=== PATIENT | male | born 1965 | race Caucasian/White ===

== ENCOUNTER 2016-11-24 19:23 | Emergency (ER) | payer OTHER ==
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
[2016-11-24 21:56] VITALS: BP 126/72; TEMP 98.7; BMI 25.0
== END 2016-11-24 19:45 | disposition home or self-care (01) ==
LOC: ED 19:23
DX: S60.512A Abrasion of left hand, initial encounter (principal); S60.511A Abrasion of right hand, initial encounter
CPT/HCPCS: 99283

== ENCOUNTER 2016-12-10 12:16 | Emergency (ER) ==
[2016-12-10 12:18] VITALS: BMI 25.0
[2016-12-10 12:29] VITALS: BP 124/86; TEMP 97.5
--- NOTE | 2016-12-10 17:22 | CT ---
EXAM: CT cervical spine. HISTORY: Neck pain. TECHNIQUE: CT cervical spine without contrast. Detailed axial sections. Coronal and sagittal re-f ormations. COMPARISON: 02/03/2014 FINDINGS: Bones appear demineralized. Redemonstration of hardware of the cervical spine which currently exten ds from C4-C7 posteriorly. There is mild stable, chronic deformity of the posterior aspect of C6 ve rtebral body possibly from previous injury. No definite spondylolisthesis. Lateral masses of C1 and C2 are normally aligned and the odontoid process is intact. No acute fracture is obvious. There i s diffuse degenerative disc and facet disease. There is at least mild central canal stenosis at C6/ C7. The central canal is not optimally seen secondary to artifact from metallic hardware. There is at least mild neural foraminal narrowing on the left, at the level of stabilization. IMPRESSION: 1. No acute fracture or subluxation. 2. Stabilization hardware extending from C4-C7. 3. Degenerative disc and facet disease which has become slightly more apparent since the prior exam .]
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
--- NOTE | 2016-12-10 17:28 | CT ---
EXAM: CT thoracic spine. HISTORY: Thoracic spine pain. TECHNIQUE: CT thoracic spine without contrast. Detailed axial sections. Coronal and sagittal re-f ormations. FINDINGS: Comparison is made to 10/02/2013. The bones appear demineralized. There is anterior and lateral bridging osteophytic spurring mainly of the [id number] spine. Moderate degenerative endplate changes are seen at least in the mid thor acic level. There is mild loss of height at what is thought to represent T7. Minimal loss of heigh t and T6, T8 and T9 as well as T10. No acute fracture is identified. There is subtle scoliosis con vex to the right. Slight exaggeration of thoracic kyphosis. No obvious central canal stenosis or n eural foraminal narrowing. No paraspinal fluid collection is identified. See also same day CT thor ax report. IMPRESSION: Moderate degenerative changes of the spine with generalized demineralization. Degenerati ve changes are slightly more noticeable since prior exam. No acute abnormality identified.
--- NOTE | 2016-12-10 17:30 | CT ---
EXAM: CT of the lumbar spine without contrast History: Back trauma. Technique: Multiplanar CT images through the lumbar spine were obtained without the administration of IV contrast Findings: Nodular cirrhotic liver with low density liver lesion. No acute fracture or subluxation of the lumbar spine. Mild to moderate multilevel degenerative disc space narrowing with endplate sclerosis and prominent anterior osteophytes. Mild to moderate multil evel bony central canal stenosis secondary to disc bulges and posterior disc osteophyte complex at L 4-L5. Multilevel bilateral bony neural foraminal narrowing secondary to ligamentous and facet hyper trophy which is most significant and severe bilaterally at L5-S1. Impression: No acute osseous abnormality of the lumbar spine. Degenerative changes.
--- NOTE | 2016-12-10 17:34 | CT ---
EXAM: CT FACIAL BONES HISTORY: Facial pain. TECHNIQUE: CT facial bones without contrast. 3-mm axial sections. Coronal and sagital reformation s. FINDINGS: Comparison is made to 01/23/2014. Stable mild deformity of both mid nasal spines. Stable probable tiny medial blowout fracture of the left inferior orbital wall. Stable hardware and poorly united fracture of the left anterior mandib ular body. Poor dental health. Scattered areas of mucosal thickening in the paranasal sinuses with probable postop changes of the sinuses, correlate with history. No visible peripheral soft tissue hematoma. IMPRESSION: No acute fracture or injury identified.
--- NOTE | 2016-12-10 18:05 | ED.PDOC ---
General ED Provider: Dr. LAMIN MAHONEY Chief Complaint: Multiple Trauma Stated Complaint: back right chest Time Seen by Physician: 12:19 Mode of Arrival: Walk-In Information Source: Patient Exam Limitations: No limitations Nursing and Triage Documentation Reviewed and Agree: Yes Trauma/Injury Complaint Exam - Trauma Complaint/Exam Location of Pain or Injury: Reports: Chest, Back Mechanism of Injury: Reports: Fall Onset/Duration: 20 days ago Symptoms Are: Still present Initial Severity: Moderate Current Severity: Mild Character: Reports: Aching Aggravating: Reports: Movement Alleviating: Reports: Rest Associated Signs and Symptoms: Denies: LOC, Confusion, Memory loss, Lethargy, Vomiting, Bleeding, Bruising, Swelling, Extremity disuse, Painful respiration, Hoarseness, Dysphagia, Hemoptysis, Significant blood loss Nexus Low Risk Criteria: No evidence of intoxicat., No Altered LOC, No focal neuro deficit, No distracting injuries Glascow Coma Scale (see protocol): 15 Differential Diagnoses: Fracture, Sprain, Strain Review of Systems - Review Of Systems Constitutional: Reports: No symptoms Eyes: Reports: No symptoms Ears, Nose, Mouth, Throat: Reports: No symptoms Respiratory: Reports: No symptoms Cardiac: Reports: No symptoms GI: Reports: No symptoms : Reports: No symptoms Musculoskeletal: Reports: Back pain Skin: Reports: No symptoms Neurological: Reports: No symptoms Endocrine: Reports: No symptoms Hematologic/Lymphatic: Reports: No symptoms All Other Systems: Reviewed and Negative Past Medical History - Past Medical History Endocrine: Reports: Unknown Cardiovascular: Reports: Unknown Respiratory: Reports: Unknown Hematological: Reports: Unknown Gastrointestinal: Reports: Unknown Genitourinary: Reports: Unknown Neuro/Psych: Reports: Unknown Musculoskeletal: Reports: Unknown Cancer: Reports: Unknown - Surgical History General Surgical History: Reports: Unknown - Family History Family History: Reports: Unknown - Social History Smoking Status: Never smoker Hx Substance Use: No Alcohol Screening: Heavy Physical Exam - Physical Exam Appearance: Well-appearing, No pain distress, Well-nourished Eyes: EVETTE, EOMI, Conjunctiva clear ENT: Ears normal, Nose normal, Oropharynx normal Respiratory: Airway patent, Breath sounds clear, Breath sounds equal, Respirations nonlabored Cardiovascular: RRR, Pulses normal, No rub, No murmur GI/: Soft, Nontender, No masses, Bowel sounds normal, No Organomegaly Musculoskeletal: No edema (right sided chest wall pain) Skin: Warm, Dry, Normal color Neurological: Sensation intact, Motor intact, Reflexes intact, Cranial nerves intact, Alert, Oriented Psychiatric: Affect appropriate, Mood appropriate Critical Care Note - Critical Care Note Total Time (mins): 0 Course - Course Orders, Labs, Meds: Orders Category Date Time Status CT CERVICAL SPINE W/O CONTRAST Stat RADS 12/10/16 16:[address] CHEST W/O CONTRAST Stat RADS 12/10/16 16:[address] LUMBAR SPINE W/O CONTRAST Stat RADS 12/10/16 16:[address] MAXILLOFACIAL W/O CONTRAST Stat RADS 12/10/16 16:[address] THORACIC SPINE W/O CONTRAST Stat RADS 12/10/16 16:19 Completed Vital Signs: Temp Pulse Resp BP Pulse Ox 12/10/16 12:19 97.5 F L 103 H 20 124/86 98 Departure - Departure Time of Disposition: 18:05 Disposition: HOME SELF-CARE Discharge Problem: Fracture of rib Qualifiers: Encounter type: initial encounter Rib fracture type: multiple ribs Laterality: right Instructions: Rib Fracture (ED) Condition: Good Pt referred to PMD for follow-up: No Additional Instructions: Please call your Family Physician as soon as possible to schedule a follow-up appointment. Allergies/Adverse Reactions: Allergies No Known Allergies Allergy (Verified 12/10/16 15:28) Home Medications: Ambulatory Orders Baclofen 10 mg PO TID 12/10/16 Baclofen 30 mg PO TID PRN 12/10/16 Cetirizine HCl [Zyrtec] 10 mg PO DAILY 12/10/16 Hydroxyzine HCl 50 mg PO TID 12/10/16 Lisinopril/Hydrochlorothiazide [Lisinopril-Hctz 10-12.5 mg Tab] 2 tab PO DAILY 12/10/16 Mirtazapine 30 mg PO BEDTIME 12/10/16 Naltrexone HCl 50 mg PO DAILY 12/10/16 Potassium Chloride [K-Tab ER] 10 meq PO DAILY 12/10/16 Sertraline HCl 200 mg PO DAILY 12/10/16 Tramadol HCl [Ultram] 50 mg PO Q6H 12/10/16
== END 2016-12-10 18:15 | disposition home or self-care (01) ==
LOC: ED 12:16
DX: S22.41XA Multiple fractures of ribs, right side, initial encounter for closed fracture (principal); W19.XXXA Unspecified fall, initial encounter
CPT/HCPCS: 99283

== ENCOUNTER 2017-12-06 10:51 | Emergency (ER) ==
[2017-12-06 11:13] VITALS: BP 119/76; TEMP 97.5; BMI 23.5
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
== END 2017-12-06 14:21 | disposition short-term general hospital (02) ==
LOC: ED 10:51
DX: T33.821A Superficial frostbite of right foot, initial encounter (principal); M79.672 Pain in left foot; M79.671 Pain in right foot; X31.XXXA Exposure to excessive natural cold, initial encounter
CPT/HCPCS: 36415; 80053; 85025; 87040; 99285

== ENCOUNTER 2017-12-06 14:20 | Outpatient (CLI) ==
[2017-12-06 11:13] VITALS: BMI 23.5
== END 2017-12-06 14:21 | disposition short-term general hospital (02) ==
LOC: AMBL 14:20
PROVIDERS: ATTEND Internal Medicine
DX: T34.832A Frostbite with tissue necrosis of left toe(s), initial encounter (principal); T34.831A Frostbite with tissue necrosis of right toe(s), initial encounter; M79.672 Pain in left foot; M79.671 Pain in right foot; X31.XXXA Exposure to excessive natural cold, initial encounter; R00.0 Tachycardia, unspecified

== ENCOUNTER 2017-12-20 06:55 | Outpatient (CLI) | END 2017-12-20 06:56 | disposition short-term general hospital (02) | LOC: AMBL 06:55 | PROVIDERS: ATTEND Family Medicine | DX: T33.832A Superficial frostbite of left toe(s), initial encounter (principal); T33.831A Superficial frostbite of right toe(s), initial encounter; F10.129 Alcohol abuse with intoxication, unspecified ==

== ENCOUNTER 2018-01-14 20:45 | Outpatient (CLI) | END 2018-01-14 20:46 | disposition short-term general hospital (02) | LOC: AMBL 20:45 | PROVIDERS: ATTEND Internal Medicine Geriatric Medicine | DX: M79.605 Pain in left leg (principal); M79.604 Pain in right leg; I96 Gangrene, not elsewhere classified; W19.XXXA Unspecified fall, initial encounter ==

== ENCOUNTER 2018-03-19 20:22 | Emergency (ER) | payer OTHER ==
[2018-03-19 20:29] VITALS: BMI 24.1
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
[2018-03-20 00:26] VITALS: TEMP 97.4
[2018-03-20 06:30] VITALS: BP 124/71
[2018-03-20] MEDS ORDERED: ATIVAN PO STA (14:09)
== END 2018-03-20 15:55 | disposition short-term general hospital (02) ==
LOC: ED 20:22
DX: R45.851 Suicidal ideations (principal); R45.850 Homicidal ideations; F10.920 Alcohol use, unspecified with intoxication, uncomplicated; T33.821D Superficial frostbite of right foot, subsequent encounter
CPT/HCPCS: 36415; 80053; 80306; 80307; 81001; 84443; 85025; 93005; 93010; 99285

== ENCOUNTER 2018-03-20 15:33 | Outpatient (CLI) ==
[2018-03-19 20:29] VITALS: BMI 24.1
== END 2018-03-20 18:05 | disposition short-term general hospital (02) ==
LOC: AMBL 15:33
PROVIDERS: ATTEND Emergency Medicine
DX: R45.851 Suicidal ideations (principal)

== ENCOUNTER 2018-03-28 18:46 | Emergency (ER) | payer OTHER ==
[2018-03-28 18:51] VITALS: BP 191/104; TEMP 98; BMI 23.4
[2018-03-28] MEDS ORDERED: TENIVAC IM ONE (18:52)
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
== END 2018-03-28 19:41 ==
LOC: ED 18:46
DX: S09.90XA Unspecified injury of head, initial encounter (principal); S00.212A Abrasion of left eyelid and periocular area, initial encounter; W22.8XXA Striking against or struck by other objects, initial encounter
CPT/HCPCS: 90471; 90714; 99283

== ENCOUNTER 2018-08-17 19:40 | Outpatient (CLI) | END 2018-08-17 19:58 | disposition short-term general hospital (02) | LOC: AMBL 19:40 | PROVIDERS: ATTEND Internal Medicine Geriatric Medicine | DX: R07.9 Chest pain, unspecified (principal) ==

== ENCOUNTER 2018-08-22 20:19 | Outpatient (CLI) | END 2018-08-22 20:20 | disposition home or self-care (01) | LOC: AMBL 20:19 | PROVIDERS: ATTEND Family Medicine | DX: R07.9 Chest pain, unspecified (principal) ==

== ENCOUNTER 2018-10-29 11:20 | Emergency (ER) ==
[2018-10-29 11:23] VITALS: BP 167/103; TEMP 96.9; BMI 23.5
[2018-10-29] MEDS ORDERED: SODIUM CHLORIDE 1,000 ML IV STA (11:38)
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
== END 2018-10-29 15:29 | disposition home or self-care (01) ==
LOC: ED 11:20
DX: S32.019A Unspecified fracture of first lumbar vertebra, initial encounter for closed fracture (principal); M54.2 Cervicalgia; R91.1 Solitary pulmonary nodule; R07.89 Other chest pain; Y04.2XXA Assault by strike against or bumped into by another person, initial encounter
CPT/HCPCS: 99283

== ENCOUNTER 2019-02-28 14:02 | Emergency (ER) | payer MEDICAID, OTHER ==
[2019-02-28 14:08] VITALS: BMI 21.4
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
[2019-02-28] MEDS ORDERED: K-DUR PO STA (15:26)
[2019-02-28] MEDS ORDERED: AUGMENTIN 875-125 MG TAB PO STA (15:29)
[2019-02-28 16:02] VITALS: BP 147/93; TEMP 97.5
== END 2019-02-28 17:24 | disposition home or self-care (01) ==
LOC: ED 14:02
DX: S02.32XA Fracture of orbital floor, left side, initial encounter for closed fracture (principal); W19.XXXA Unspecified fall, initial encounter; R42 Dizziness and giddiness; R51 Headache
CPT/HCPCS: 36415; 80053; 85025; 99283

== ENCOUNTER 2019-03-11 12:13 | Emergency (ER) ==
[2019-03-11 12:17] VITALS: TEMP 98.6; BMI 20.5
[2019-03-11 12:18] VITALS: BP 148/88
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
== END 2019-03-11 12:40 | disposition home or self-care (01) ==
LOC: ED 12:13
DX: K08.89 Other specified disorders of teeth and supporting structures (principal); K02.7 Dental root caries
CPT/HCPCS: 99282